=== PATIENT | female | born 1995 | race Caucasian/White ===

== ENCOUNTER → 2017-10-07 | Outpatient (CLI) | payer BC ==
[~2017-10-07] MED LIST: L.AC1CAP6 PO; LISI-362 PO; NORG1TAB75 PO; VALA500T66 PO
--- NOTE | 2017-10-07 15:39 | RADIOLOGY IMAGING REPORT ---
FACILITY: [facility] [place] PATIENT NAME: Bonnie Iniguez : 1995 MR: [id number] V: [id number] EXAM DATE: ORDERING PHYSICIAN: KATHYA NAPOLES TECHNOLOGIST: Location: [facility] Patient: Bonnie Iniguez : 1995 Visit/Account:[id number] Date of Sevice: 10/07/2017 Examination: Pelvic ultrasound Comparison: None Available History: IUD placed 3 weeks ago. Bleeding. Findings: Standard endovaginal pelvic ultrasound with color flow and spectral analysis. Uterus: Uterus measurement: 7.1 x 4.3 x 5.5 cm Endometrium measurement: 6 mm Retroverted uterus. Intrauterine device with the body of the device in the uterine body. One of the a erwin extends normally towards the cornua. The other arm has an acute angulation with the tip extending retrograde towards the cervix and potentially penetrating the myometrium. There is no sonographic ev idence of uterine wall full-thickness perforation. No uterine mass or fluid collection is otherwise i dentified.. Adnexa: Right ovary: 3.6 x 1.8 x 2.7 cm . No suspicious ovarian or adnexal mass. Normal arterial and venous flow is documented within the ovary on Doppler evaluation. Left ovary: 4.0 x 1.9 x 1.9 cm . No suspicious ovarian or adnexal mass. Normal arterial and venous f low is documented within the ovary on Doppler evaluation. Free fluid: None Urinary bladder: Unremarkable. IMPRESSION: 1. Malpositioned intrauterine device as described above. 2. Negative sonographic evaluation of the ovaries. Results were discussed with KATHYA NAPOLES at 10/07/2017 3:33 PM. Report Dictated By: Van Neal MD at 10/07/2017 3:25 PM Report E-Signed By: Van Neal MD at 10/07/2017 3:35 PM WSN:[id number]
== END ==
LOC: US 14:18
PROVIDERS: ATTEND Nurse Practitioner
DX: Z30.431 Encounter for routine checking of intrauterine contraceptive device (principal); T83.32XA Displacement of intrauterine contraceptive device, initial encounter
CPT/HCPCS: 76830